=== PATIENT | male | born 1965 | race Caucasian/White ===

== ENCOUNTER 2024-01-15 19:36 | Inpatient (IN) | payer OTHER ==
--- NOTE | 2024-01-15 21:30 | XR ---
EXAMINATION TYPE: XR chest 1V portable DATE OF EXAM: 01/15/2024 9:24 PM CLINICAL INDICATION:Male, 58 years old with history of altered mental status; COMPARISON: None TECHNIQUE: XR chest 1V portable Frontal view of the chest. FINDINGS: Lungs/Pleura: There is no evidence of pleural effusion, focal consolidation, or pneumothorax. Pulmonary vascularity: Unremarkable. Heart/mediastinum: Cardiomediastinal silhouette is unremarkable. Musculoskeletal: No acute osseous pathology. IMPRESSION: Rotated exam, No acute cardiopulmonary disease/process.
[2024-01-15 22:10] LABS: Basophils # (A) 0.1 k/uL (0-0.2); Basophils % (A) 1 %; Eosinophils % (A) 0 %; HGB 15.1 gm/dL (13.0-17.5); Lymphocytes # (A) 1.2 k/uL (1.0-4.8); Lymphocytes % (A) 15 %; MCH 32.7 pg (25.0-35.0); MCHC 35.2 g/dL (31.0-37.0); Mean Platelet Volume 6.9; Monocytes # (A) 0.6 k/uL (0-1.0); Monocytes % (A) 8 %; Neutrophils # (A) 5.9 k/uL (1.3-7.7); Neutrophils % (A) 75 %; Platelet Count 293 k/uL (150-450); RBC 4.63 m/uL (4.30-5.90); RDW 13.6 % (11.5-15.5); WBC 7.9 k/uL (3.8-10.6)
[2024-01-15 22:29] LABS: ALT 46 U/L (4-49); AST 72 U/L (17-59); African American GFR (CKD) >90 (>60 ml/min/1.73 sqM); Albumin 4.3 g/dL (3.5-5.0); Alkaline Phosphatase 115 U/L (38-126); Anion Gap 20 mmol/L; Blood Urea Nitrogen 21 mg/dL (9-20); Calcium 8.6 mg/dL (8.4-10.2); Carbon Dioxide 24 mmol/L (22-30); Chloride 90 mmol/L (98-107); Glucose 71 mg/dL (74-99); Non-African American GFR(CKD) 85 (>60 ml/min/1.73 sqM); Potassium 3.2 mmol/L (3.5-5.1); Sodium 134 mmol/L (137-145); Total Bilirubin 0.9 mg/dL (0.2-1.3); Total Protein 6.8 g/dL (6.3-8.2)
[2024-01-15 22:39] LABS: INR 0.9 (<1.2); Partial Thromboplastin Time 23.1 sec (22.0-30.0); Prothrombin Time 9.7 sec (10.0-12.5)
--- NOTE | 2024-01-15 23:16 | ED ---
General Adult HPI - General Chief complaint: Shortness of Breath Stated complaint: ETOH,BRAYDEN Time Seen by Provider: 01/15/24 21:10 Source: EMS Mode of arrival: EMS Limitations: altered mental status - History of Present Illness Initial comments: Patient is 58-year-old man who presents with complaints of public intoxication. When I interviewed the patient, he states that he had been sober for a period of time and then began drinking about a month ago. He states that he does drink over 1/5 of alcohol on many days. He drinks daily. The patient today states he feels very anxious like something is going to happen to him. Patient denies recent fall or injury. No hematemesis. Severity scale (1-10): 0 Consistency: constant Improves with: none Worsens with: none Associated Symptoms: nausea/vomiting, weakness Treatments Prior to Arrival: none - Related Data Home Medications Medication Instructions Recorded Confirmed No Known Home Medications 01/16/24 01/16/24 Allergies Allergy/AdvReac Type Severity Reaction Status Date / Time No Known Allergies Allergy Verified 01/16/24 07:07 Review of Systems ROS Statement: Those systems with pertinent positive or pertinent negative responses have been documented in the HPI. ROS Other: All systems not noted in ROS Statement are negative. Constitutional: Reports: weakness. Denies: fever Eyes: Denies: vision change Respiratory: Denies: cough, dyspnea Cardiovascular: Denies: chest pain, palpitations, edema Gastrointestinal: Reports: nausea, vomiting. Denies: abdominal pain, diarrhea, hematemesis, melena, hematochezia Genitourinary: Denies: dysuria, hematuria Musculoskeletal: Denies: back pain Skin: Denies: rash Neurological: Denies: headache, weakness, numbness Psychiatric: Reports: anxiety, depression. Denies: suicidal thoughts Past Medical History Past Medical History: Hyperlipidemia, Hypertension History of Any Multi-Drug Resistant Organisms: None Reported Past Surgical History: No Surgical Hx Reported Past Psychological History: Anxiety, Bipolar, Depression Smoking Status: Current every day smoker Past Alcohol Use History: Abuse Past Drug Use History: Marijuana General Exam General appearance: alert, in no apparent distress, appears intoxicated Head exam: Present: atraumatic, normocephalic Eye exam: Present: normal appearance. Absent: scleral icterus, conjunctival injection ENT exam: Present: normal oropharynx Neck exam: Present: normal inspection Respiratory exam: Present: normal lung sounds bilaterally. Absent: respiratory distress, wheezes, rales, rhonchi, stridor Cardiovascular Exam: Present: regular rate, normal rhythm, normal heart sounds. Absent: systolic murmur, diastolic murmur, rubs, gallop GI/Abdominal exam: Present: soft. Absent: distended, tenderness, guarding, rebound, rigid, mass Extremities exam: Present: normal inspection, normal capillary refill. Absent: pedal edema, calf tenderness Back exam: Present: normal inspection. Absent: CVA tenderness (R), CVA tenderness (L) Neurological exam: Present: alert, CN II-XII intact. Absent: oriented X3, motor sensory deficit Psychiatric exam: Present: depressed. Absent: homicidal ideation, suicidal ideation Skin exam: Present: warm, dry, intact, normal color. Absent: rash Course Vital Signs 01/15/24 01/15/24 01/16/24 19:47 22:48 00:22 Temperature 98.6 F Pulse Rate 100 92 95 Pulse Rate [ Left] Respiratory 18 18 18 Rate Blood Pressure 101/66 Blood Pressure [Left Arm] O2 Sat by Pulse 91 L 95 Oximetry 01/16/24 01/16/24 01/16/24 06:18 08:00 08:51 Temperature 98.3 F 98.6 F Pulse Rate 96 71 77 Pulse Rate [ Left] Respiratory 18 18 18 Rate Blood Pressure 99/74 124/53 124/43 Blood Pressure [Left Arm] O2 Sat by Pulse 94 L 96 94 L Oximetry 01/16/24 01/16/24 01/16/24 09:37 14:55 15:01 Temperature Pulse Rate 71 72 84 Pulse Rate [ Left] Respiratory 16 18 Rate Blood Pressure 107/81 102/91 Blood Pressure [Left Arm] O2 Sat by Pulse 96 96 Oximetry 01/16/24 01/16/24 15:09 15:33 Temperature 98.0 F Pulse Rate 78 Pulse Rate [ 83 Left] Respiratory 18 Rate Blood Pressure Blood Pressure 157/80 [Left Arm] O2 Sat by Pulse 95 Oximetry Medical Decision Making - Medical Decision Making Patient had chest x-ray that I interpreted as negative for acute infiltrate, pneumothorax, congestive heart failure. Was pt. sent in by a medical professional or institution (, PA, COFFEE URN ATTENDANT, urgent care, hospital, or skilled nursing...) When possible be specific @ -[No] Did you speak to anyone other than the patient for history (EMS, parent, family, police, friend...)? What history was obtained from this source @ -[No] Did you review nursing and triage notes (agree or disagree)? Why? @ -[I reviewed and agree with nursing and triage notes] Were old charts reviewed (outside hosp., previous admission, EMS record, old EKG, old radiological studies, urgent care reports/EKG's, skilled nursing records)? Report findings @ -[No old charts were reviewed] Differential Diagnosis (chest pain, altered mental status, abdominal pain women, abdominal pain men, vaginal bleeding, weakness, fever, dyspnea, syncope, headache, dizziness, GI bleed, back pain, seizure, CVA, palpatations, mental health, musculoskeletal)? @ -[Differential Mental Health Depression, anxiety, bipolar, psychosis, schizophrenia, borderline personality, situational depression, adjustment disorder, behavioral disorder, brain tumor, malingering, substance abuse, encephalopathy, medication reaction, dementia, hypothyroidism, degenerative neurologic disorder, lupus.... This is not meant to be all-inclusive list EKG interpreted by me (3pts min.). @ -[As above] X-rays interpreted by me (1pt min.). @ -[I interpreted as above CT interpreted by me (1pt min.). @ -[None done] U/S interpreted by me (1pt. min.). @ -[None done] What testing was considered but not performed or refused? (CT, X-rays, U/S, labs)? Why? @ -[None] What meds were considered but not given or refused? Why? @ -[None] Did you discuss the management of the patient with other professionals (professionals i.e. , PA, COFFEE URN ATTENDANT, lab, RT, psych nurse, case management social worker, brand analyst, teacher, police or patrol park officer, community case manager)? Give summary @ -[Case discussed with admitting physician and treatment recommendations are incorporated Was smoking cessation discussed for >3mins.? @ -[No] Was critical care preformed (if so, how long)? @ -[No] Were there social determinants of health that impacted care today? How? (Homelessness, low income, unemployed, alcoholism, drug addiction, transportation, low edu. Level, literacy, decrease access to med. care, custodial, rehab)? @ -[Alcoholism Was there de-escalation of care discussed even if they declined (Discuss DNR or withdrawal of care, Hospice)? DNR status @ -[No] What co-morbidities impacted this encounter? (DM, HTN, Smoking, COPD, CAD, Cancer, CVA, ARF, Chemo, Hep., AIDS, mental health diagnosis, sleep apnea, morbid obesity)? @ -[History of alcoholism Was patient admitted / discharged? Hospital course, mention meds given and route, prescriptions, significant lab abnormalities, going to OR and other pertinent info. @ -[Patient is a 58-year-old man presenting with acute alcohol intoxication and starting to develop DTs. Patient will be admitted for [facility] protocol Undiagnosed new problem with uncertain prognosis? @ -[No] Drug Therapy requiring intensive monitoring for toxicity (Heparin, Nitro, Insulin, Cardizem)? @ -[No] Were any procedures done? @ -[No] Diagnosis/symptom? @ -[Acute alcohol intoxication Impending delirium tremens Acute, or Chronic, or Acute on Chronic? @ -[Acute Uncomplicated (without systemic symptoms) or Complicated (systemic symptoms)? @ -[Uncomplicated Side effects of treatment? @ -[No] Exacerbation, Progression, or Severe Exacerbation? @ -[No] Poses a threat to life or bodily function? How? (Chest pain, [place], [place], pneumonia, PE, COPD, DKA, ARF, appy, cholecystitis, CVA, Diverticulitis, Homicidal, Suicidal, threat to staff... and all critical care pts) @ -[Yes, there is significant morbidity mortality associated with DTs - Lab Data Result diagrams: 01/18/24 07:17 01/20/24 06:59 Lab Results 01/15/24 01/15/24 01/15/24 Range/Units 21:52 21:52 21:52 WBC 7.9 (3.8-10.6) k/uL RBC 4.63 (4.30-5.90) m/uL Hgb 15.1 (13.0-17.5) gm/dL Hct 43.0 (39.0-53.0) % MCV 93.0 (80.0-100.0) fL MCH 32.7 (25.0-35.0) pg MCHC 35.2 (31.0-37.0) g/dL RDW 13.6 (11.5-15.5) % Plt Count 293 (150-450) k/uL MPV 6.9 Neutrophils % 75 % Lymphocytes % 15 % Monocytes % 8 % Eosinophils % 0 % Basophils % 1 % Neutrophils # 5.9 (1.3-7.7) k/uL Lymphocytes # 1.2 (1.0-4.8) k/uL Monocytes # 0.6 (0-1.0) k/uL Eosinophils # 0.0 (0-0.7) k/uL Basophils # 0.1 (0-0.2) k/uL PT 9.7 L (10.0-12.5) sec INR 0.9 (<1.2) APTT 23.1 (22.0-30.0) sec Sodium 134 L (137-145) mmol/L Potassium 3.2 L (3.5-5.1) mmol/L Chloride 90 L (98-107) mmol/L Carbon Dioxide 24 (22-30) mmol/L Anion Gap 20 mmol/L BUN 21 H (9-20) mg/dL Creatinine 0.97 (0.66-1.25) mg/dL Est GFR (CKD-EPI)AfAm >90 (>60 ml/min/1.73 sqM) Est GFR (CKD-EPI)NonAf 85 (>60 ml/min/1.73 sqM) Glucose 71 L (74-99) mg/dL Lactic Ac Sepsis Rflx Plasma Lactic Acid Sacha (0.7-2.0) mmol/L Calcium 8.6 (8.4-10.2) mg/dL Total Bilirubin 0.9 (0.2-1.3) mg/dL AST 72 H (17-59) U/L ALT 46 (4-49) U/L Alkaline Phosphatase 115 (38-126) U/L Troponin I (0.000-0.034) ng/mL Total Protein 6.8 (6.3-8.2) g/dL Albumin 4.3 (3.5-5.0) g/dL Serum Alcohol mg/dL 01/15/24 01/15/24 01/15/24 Range/Units 21:52 21:52 22:53 WBC (3.8-10.6) k/uL RBC (4.30-5.90) m/uL Hgb (13.0-17.5) gm/dL Hct (39.0-53.0) % MCV (80.0-100.0) fL MCH (25.0-35.0) pg MCHC (31.0-37.0) g/dL RDW (11.5-15.5) % Plt Count (150-450) k/uL MPV Neutrophils % % Lymphocytes % % Monocytes % % Eosinophils % % Basophils % % Neutrophils # (1.3-7.7) k/uL Lymphocytes # (1.0-4.8) k/uL Monocytes # (0-1.0) k/uL Eosinophils # (0-0.7) k/uL Basophils # (0-0.2) k/uL PT (10.0-12.5) sec INR (<1.2) APTT (22.0-30.0) sec Sodium (137-145) mmol/L Potassium (3.5-5.1) mmol/L Chloride (98-107) mmol/L Carbon Dioxide (22-30) mmol/L Anion Gap mmol/L BUN (9-20) mg/dL Creatinine (0.66-1.25) mg/dL Est GFR (CKD-EPI)AfAm (>60 ml/min/1.73 sqM) Est GFR (CKD-EPI)NonAf (>60 ml/min/1.73 sqM) Glucose (74-99) mg/dL Lactic Ac Sepsis Rflx Y Plasma Lactic Acid Sacha 2.6 H* (0.7-2.0) mmol/L Calcium (8.4-10.2) mg/dL Total Bilirubin (0.2-1.3) mg/dL AST (17-59) U/L ALT (4-49) U/L Alkaline Phosphatase (38-126) U/L Troponin I 0.025 (0.000-0.034) ng/mL Total Protein (6.3-8.2) g/dL Albumin (3.5-5.0) g/dL Serum Alcohol mg/dL 01/15/24 01/16/24 Range/Units 23:29 01:09 WBC (3.8-10.6) k/uL RBC (4.30-5.90) m/uL Hgb (13.0-17.5) gm/dL Hct (39.0-53.0) % MCV (80.0-100.0) fL MCH (25.0-35.0) pg MCHC (31.0-37.0) g/dL RDW (11.5-15.5) % Plt Count (150-450) k/uL MPV Neutrophils % % Lymphocytes % % Monocytes % % Eosinophils % % Basophils % % Neutrophils # (1.3-7.7) k/uL Lymphocytes # (1.0-4.8) k/uL Monocytes # (0-1.0) k/uL Eosinophils # (0-0.7) k/uL Basophils # (0-0.2) k/uL PT (10.0-12.5) sec INR (<1.2) APTT (22.0-30.0) sec Sodium (137-145) mmol/L Potassium (3.5-5.1) mmol/L Chloride (98-107) mmol/L Carbon Dioxide (22-30) mmol/L Anion Gap mmol/L BUN (9-20) mg/dL Creatinine (0.66-1.25) mg/dL Est GFR (CKD-EPI)AfAm (>60 ml/min/1.73 sqM) Est GFR (CKD-EPI)NonAf (>60 ml/min/1.73 sqM) Glucose (74-99) mg/dL Lactic Ac Sepsis Rflx Plasma Lactic Acid Sacha 1.8 (0.7-2.0) mmol/L Calcium (8.4-10.2) mg/dL Total Bilirubin (0.2-1.3) mg/dL AST (17-59) U/L ALT (4-49) U/L Alkaline Phosphatase (38-126) U/L Troponin I (0.000-0.034) ng/mL Total Protein (6.3-8.2) g/dL Albumin (3.5-5.0) g/dL Serum Alcohol 338 H* mg/dL Disposition Clinical Impression: Alcohol intoxication Disposition: ADMITTED IP TO THIS HOSP Condition: Fair
[2024-01-16] MEDS ORDERED: NALOXONE 0.4 MG/ML 1 ML VIAL IV PRN (01:47)
[2024-01-16] MEDS: SODIUM CHLORIDE 0.9% 1,000 ML IV SCH (02:11)
[2024-01-16] MEDS: FAMOTIDINE 20 MG TAB PO SCH (09:06)
[2024-01-16] MEDS: LORazepam 2 MG/ML INJ IV PRN ×3 (09:06→17:42)
[2024-01-16] MEDS ORDERED: IPRATROPIUM-ALBUTEROL 3 ML NEB INHALATION PRN (12:16)
--- NOTE | 2024-01-16 13:41 | HP ---
HISTORY AND PHYSICAL CHIEF COMPLAINT: Shortness of breath and ETOH history. HISTORY OF PRESENT ILLNESS: This is a 58-year-old gentleman with a past medical history of significant EtOH abuse, was sober for time. The patient started about a month ago. The patient is complaining of some shortness of breath and cough. The patient came to [facility] for further evaluation and treatment. The initial chest x-ray which I reviewed was rather rotated. Otherwise, no skin abnormalities are noted. The alcohol was 338. PAST MEDICAL HISTORY: Reviewed include , hyperlipidemia, history of bipolar, rest of the chart is also reviewed. HOME MEDICATIONS: None. ALLERGIES: None. FAMILY HISTORY: No history of heart disease or strokes in the family. SOCIAL HISTORY: History of alcohol abuse. REVIEW OF SYSTEMS: A 14-point review of systems negative as mentioned earlier. PHYSICAL EXAMINATION: VITAL SIGNS: Pulse is 71, blood pressure 107/82, and respirations 16. HEENT: Conjunctivae normal. NECK: No jugular venous distention. CARDIOVASCULAR: S1, S2. RESPIRATIONS: Diminished at the bases, few scattered rhonchi. ABDOMEN: Soft. NERVOUS SYSTEM: Nonfocal. LABORATORY DATA: Reviewed. ASSESSMENT: 1. Acute alcohol intoxication. 2. Possible COPD acute exacerbation. 3. Hyponatremia. 4. Hypokalemia. 5. Hypertension. 6. Hyperlipidemia. 7. Anxiety, bipolar, depression. RECOMMENDATIONS AND DISCUSSION: This 58-year-old gentleman presented with multiple complex medical issues, we will monitor the patient closely. I would recommend intensive bronchodilator treatment. Otherwise, [facility] protocol for ETOH and DT precautions. We will follow the patient closely. DVT prophylaxis. Supplement vitamins. Prognosis guarded. Recommend close followup with primary physician as well as an ETOH rehab after discharge. Further recommendations to follow. MMODL / IJN: [id number] / SOREN
[2024-01-16] MEDS: IPRATROPIUM-ALBUTEROL 3 ML NEB INHALATION SCH (15:00)
[2024-01-16] MEDS: SYMBICORT 160-4.5 MCG INHALER INHALATION SCH (15:01)
[2024-01-16] MEDS: NICOTINE 14MG/24HR PATCH TRANSDERM SCH (15:38)
[2024-01-16] MEDS: POTASSIUM CHLORIDE ER 20 MEQ TAB.ER PO STA (17:24)
[2024-01-16] MEDS: HEPARIN SODIUM,PORCINE 5,000 UNIT/ML 1 ML VIAL SQ SCH (19:57)
[2024-01-17] MEDS: PANTOPRAZOLE 40 MG TABLET PO SCH (06:33)
[2024-01-17] MEDS: THIAMINE 100 MG TAB PO SCH (08:12)
[2024-01-17 08:25] LABS: African American GFR (CKD) >90 (>60 ml/min/1.73 sqM); Anion Gap 3 mmol/L; Blood Urea Nitrogen 16 mg/dL (9-20); Calcium 8.7 mg/dL (8.4-10.2); Carbon Dioxide 32 mmol/L (22-30); Chloride 93 mmol/L (98-107); Glucose 111 mg/dL (74-99); Non-African American GFR(CKD) >90 (>60 ml/min/1.73 sqM); Potassium 3.1 mmol/L (3.5-5.1); Sodium 128 mmol/L (137-145)
[2024-01-17 08:53] LABS: Basophils % (A) 1 %; Eosinophils # (A) 0.1 k/uL (0-0.7); Eosinophils % (A) 2 %; HCT 39.1 % (39.0-53.0); HGB 13.4 gm/dL (13.0-17.5); Lymphocytes # (A) 1.1 k/uL (1.0-4.8); Lymphocytes % (A) 35 %; MCH 32.5 pg (25.0-35.0); MCHC 34.3 g/dL (31.0-37.0); MCV 94.6 fL (80.0-100.0); Mean Platelet Volume 7.7; Monocytes # (A) 0.2 k/uL (0-1.0); Monocytes % (A) 6 %; Neutrophils # (A) 1.7 k/uL (1.3-7.7); Neutrophils % (A) 55 %; Platelet Count 218 k/uL (150-450); RBC 4.13 m/uL (4.30-5.90); RDW 13.6 % (11.5-15.5)
[2024-01-17] MEDS: MULTIVITAMINS, THERA 1 EACH TAB PO SCH (12:06)
[2024-01-17] MEDS: FOLIC ACID 1 MG TAB PO SCH (12:06)
[2024-01-17] MEDS ORDERED: Magnesium Replacement Protocol 1 EACH MISC MISCELLANE PRN (13:58)
[2024-01-17] MEDS ORDERED: Potassium Replacement Protocol 1 EACH MISC MISCELLANE PRN (13:58)
--- NOTE | 2024-01-17 14:38 | PN ---
PROGRESS NOTE DATE OF SERVICE: 01/17/2024 SUBJECTIVE: This is a 58-year-old gentleman who was admitted with acute alcohol intoxication and possibly COPD exacerbation, complaining of generalized weakness. No chest pain, no palpitation. OBJECTIVE: VITAL SIGNS: Pulse is 54, blood pressure 140/60, and respirations 17. CHEST: Few scattered rhonchi and crackles. ABDOMEN: Soft. NERVOUS SYSTEM: Diffusely Weak. LABORATORY DATA: Sodium 128, potassium 3.1. ASSESSMENT: 1. Acute alcohol intoxication. 2. Chronic obstructive pulmonary disease acute exacerbation. 3. Hyponatremia. 4. Hypokalemia. 5. Hypertension. 6. Hyperlipidemia. 7. Multiple complex medical issues. RECOMMENDATIONS: Recommended to continue current management, continue symptomatic treatment, obtained potassium. Monitor sodium closely, PT OT evaluation. Prognosis guarded. Recommend repeat labs. Further recommendations to follow. ADRIAN / ERIK: [id number] /
[2024-01-17] MEDS: HYDROcodone/APAP 5-325MG 1 EACH TAB PO PRN (14:51)
[2024-01-17] MEDS: POTASSIUM CHLORIDE ER 20 MEQ TAB.ER PO SCH (14:52)
[2024-01-18 07:47] LABS: Basophils % (A) 1 %; Eosinophils # (A) 0.1 k/uL (0-0.7); Eosinophils % (A) 2 %; HCT 42.1 % (39.0-53.0); Lymphocytes # (A) 0.7 k/uL (1.0-4.8); Lymphocytes % (A) 18 %; MCHC 33.3 g/dL (31.0-37.0); Mean Platelet Volume 7.2; Monocytes # (A) 0.1 k/uL (0-1.0); Monocytes % (A) 3 %; Neutrophils # (A) 3.1 k/uL (1.3-7.7); Neutrophils % (A) 76 %; Platelet Count 228 k/uL (150-450); RBC 4.39 m/uL (4.30-5.90); RDW 13.6 % (11.5-15.5)
[2024-01-18 07:57] LABS: African American GFR (CKD) >90 (>60 ml/min/1.73 sqM); Anion Gap 3 mmol/L; Blood Urea Nitrogen 10 mg/dL (9-20); Calcium 9.5 mg/dL (8.4-10.2); Carbon Dioxide 36 mmol/L (22-30); Chloride 94 mmol/L (98-107); Glucose 110 mg/dL (74-99); Magnesium 1.9 mg/dL (1.6-2.3); Non-African American GFR(CKD) >90 (>60 ml/min/1.73 sqM); Potassium 3.5 mmol/L (3.5-5.1); Sodium 133 mmol/L (137-145)
--- NOTE | 2024-01-18 08:21 | P.PN ---
Subjective this is a pleasant 58 years old male who presents with signs symptoms of alcohol intoxication and he had high level of alcohol 338 emergency room Currently he was admitted to general medical floor treated for alcohol withdrawal. 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 Currently he agrees just in the hospital. no chest pain or dyspnea. No specific GI or urinary complaints. No headache dizziness weakness or numbness vitals looks stable CBC is unremarkable Sodium is improving 128 up to 133 EKG shows sinus rhythm at 84 Chest x-ray no acute process Objective - Vital Signs Vital signs: Vital Signs Temp 97.9 F 01/18/24 07:52 Pulse 79 01/18/24 07:52 Resp 17 01/18/24 07:52 BP 122/76 01/18/24 07:52 Pulse Ox 98 01/18/24 07:52 FiO2 Intake & Output 01/17/24 01/18/24 01/18/24 18:59 06:59 18:59 Other: Voiding Method Toilet Toilet # Voids 2 3 # Bowel Movements 7 - Exam - GENERAL: The patient is alert and oriented x3, not in any acute distress. Well developed, well nourished. tremor of the head and neck and arms HEENT: Pupils are round and equally reacting to light. EOMI. No scleral icterus. No conjunctival pallor. Normocephalic, atraumatic. No pharyngeal erythema. No thyromegaly. CARDIOVASCULAR: S1 and S2 present. No murmurs, rubs, or gallops. PULMONARY: Chest is clear to auscultation, no wheezing , no crackles. ABDOMEN: Soft, nontender, nondistended, normoactive bowel sounds. No palpable organomegaly. MUSCULOSKELETAL: No joint swelling or deformity. EXTREMITIES: No cyanosis, clubbing, or pedal edema. NEUROLOGICAL: Gross neurological examination did not reveal any focal deficits. SKIN: No rashes. no petechiae. - Labs CBC & Chem 7: 01/18/24 07:17 01/18/24 07:17 Labs: Abnormal Lab Results - Last 24 Hours (Table) 01/17/24 01/17/24 01/18/24 Range/Units 07:38 07:38 07:17 WBC 3.0 L (3.8-10.6) k/uL RBC 4.13 L (4.30-5.90) m/uL Lymphocytes # 0.7 L (1.0-4.8) k/uL Sodium 128 L (137-145) mmol/L Potassium 3.1 L (3.5-5.1) mmol/L Chloride 93 L (98-107) mmol/L Carbon Dioxide 32 H (22-30) mmol/L Creatinine 0.61 L (0.66-1.25) mg/dL Glucose 111 H (74-99) mg/dL 01/18/24 Range/Units 07:17 WBC (3.8-10.6) k/uL RBC (4.30-5.90) m/uL Lymphocytes # (1.0-4.8) k/uL Sodium 133 L (137-145) mmol/L Potassium (3.5-5.1) mmol/L Chloride 94 L (98-107) mmol/L Carbon Dioxide 36 H (22-30) mmol/L Creatinine (0.66-1.25) mg/dL Glucose 110 H (74-99) mg/dL Assessment and Plan Assessment: alcohol use disorder and alcohol withdrawal depression without suicidal or homicidal ideation Insomnia Hyponatremia hyperlipidemia Plan: continue with [facility] protocol on thiamine at trazodone start Zoloft Monitor sodium level GI prophylaxis: Pepcid DVT prophylaxis: Heparin Prognosis is guarded
[2024-01-18] MEDS: SERTRALINE 25 MG TAB PO SCH (10:43)
[2024-01-18 11:39] VITALS: BMI 17.6
[2024-01-18] MEDS: SODIUM CHLORIDE 0.9% 1,000 ML IV SCH (14:58)
[2024-01-18] MEDS: traZODone HCL 100 MG TAB PO SCH (20:26)
[2024-01-19] MEDS: CHOLESTYRAMINE (WITH SUGAR) 4 GM PACKET PO SCH (11:15)
[2024-01-19 12:06] LABS: ALT 35 U/L (4-49); AST 45 U/L (17-59); African American GFR (CKD) >90 (>60 ml/min/1.73 sqM); Albumin 3.1 g/dL (3.5-5.0); Alkaline Phosphatase 94 U/L (38-126); Anion Gap 2 mmol/L; Blood Urea Nitrogen 8 mg/dL (9-20); Calcium 8.7 mg/dL (8.4-10.2); Carbon Dioxide 29 mmol/L (22-30); Chloride 103 mmol/L (98-107); Glucose 90 mg/dL (74-99); Magnesium 1.7 mg/dL (1.6-2.3); Non-African American GFR(CKD) >90 (>60 ml/min/1.73 sqM); Potassium 3.8 mmol/L (3.5-5.1); Sodium 134 mmol/L (137-145); Total Bilirubin 0.6 mg/dL (0.2-1.3); Total Protein 5.4 g/dL (6.3-8.2)
--- NOTE | 2024-01-19 14:56 | P.PN ---
Subjective Progress Note Date: 01/19/24 this is a pleasant 58 years old male who presents with signs symptoms of alcohol intoxication and he had high level of alcohol 338 emergency room Currently he was admitted to general medical floor treated for alcohol withdrawal. 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 Currently he agrees just in the hospital. no chest pain or dyspnea. No specific GI or urinary complaints. No headache dizziness weakness or numbness vitals looks stable CBC is unremarkable Sodium is improving 128 up to 133 EKG shows sinus rhythm at 84 Chest x-ray no acute process 01/19/2024 Patient is evaluated in follow-up on the medical floor. Patient continues to have symptoms of alcohol withdrawal he is having tremors at baseline and overall states that "he feels like shit". He is continued on Ativan CIWA protocol with last dose being given in at 3 AM this morning. Patient does complain of multiple episodes of loose stools and nausea. C. difficile was found to be negative he will be started on question for supportive care. He is currently pending rehab and social work is following with multiple social issues including no insurance. Review of Systems Constitutional: Denied any fatigue denied any fever. Cardio vascular: denied any chest pain, palpitations Gastrointestinal: denied any nausea, vomiting, diarrhea Pulmonary: Denied any shortness of breath cough Neurologic: Reports weakness, tremors All inpatient medications were reviewed and appropriate changes in these medications as dictated in the interval history and assessment and plan. PHYSICAL EXAMINATION: GENERAL: The patient is alert and oriented x3, not in any acute distress. Well developed, well nourished. HEENT: Pupils are round and equally reacting to light. EOMI. No scleral icterus. No conjunctival pallor. Normocephalic, atraumatic. No pharyngeal erythema. No thyromegaly. CARDIOVASCULAR: S1 and S2 present. No murmurs, rubs, or gallops. PULMONARY: Chest is clear to auscultation, no wheezing or crackles. ABDOMEN: Soft, nontender, nondistended, normoactive bowel sounds. No palpable organomegaly. MUSCULOSKELETAL: No joint swelling or deformity. EXTREMITIES: No cyanosis, clubbing, or pedal edema. NEUROLOGICAL: Gross neurological examination did not reveal any focal deficits. Diffuse weakness and tremors with arms extended. SKIN: No rashes. Assessment and Plan Assessment Alcohol use disorder and alcohol withdrawal Depression without suicidal or homicidal ideation Insomnia Hyponatremia hypovolemic due to diarrhea Diarrhea from alcohol withdrawal hyperlipidemia GI prophylaxis Protonix DVT prophlyaxis Full Code Plan Continue on ativan CIWA protocol Continue with normal saline running at 75 mls/hr Add questran scheduled as well as imodium for the diarrhea Repeat BMP in the AM monitor electrolytes and renal function Social work following for Medicaid josse and rehab placement. The impression and plan of care has been dictated by Angie Diaz Nurse Practitioner as directed. Dr. Tara MD I have performed a history and physical examination and medical decision making of this patient, discussed the same with the dictator, and agree with the dictators assessment and plan as written, documented as a scribe. Based on total visit time, I have performed more than 50% of this visit. Objective - Vital Signs Vital signs: Vital Signs Temp 98 F 01/19/24 08:00 Pulse 74 01/19/24 08:00 Resp 20 01/19/24 08:00 BP 142/73 01/19/24 08:00 Pulse Ox 100 01/19/24 08:00 FiO2 Intake & Output 01/18/24 01/19/24 01/19/24 18:59 06:59 18:59 Weight 58.967 kg Other: Voiding Method Toilet Toilet # Bowel Movements 10 - Labs CBC & Chem 7: 01/18/24 07:17 01/19/24 11:25 Labs: Abnormal Lab Results - Last 24 Hours (Table) 01/19/24 Range/Units 11:25 Sodium 134 L (137-145) mmol/L BUN 8 L (9-20) mg/dL Creatinine 0.64 L (0.66-1.25) mg/dL Total Protein 5.4 L (6.3-8.2) g/dL Albumin 3.1 L (3.5-5.0) g/dL Assessment and Plan Time with Patient: Less than 30
[2024-01-20 08:36] LABS: African American GFR (CKD) >90 (>60 ml/min/1.73 sqM); Anion Gap 0 mmol/L; Blood Urea Nitrogen 13 mg/dL (9-20); Calcium 8.4 mg/dL (8.4-10.2); Carbon Dioxide 30 mmol/L (22-30); Chloride 105 mmol/L (98-107); Glucose 90 mg/dL (74-99); Non-African American GFR(CKD) >90 (>60 ml/min/1.73 sqM); Potassium 3.7 mmol/L (3.5-5.1); Sodium 135 mmol/L (137-145)
--- NOTE | 2024-01-20 14:52 | P.PN ---
Subjective Progress Note Date: 01/20/24 this is a pleasant 58 years old male who presents with signs symptoms of alcohol intoxication and he had high level of alcohol 338 emergency room Currently he was admitted to general medical floor treated for alcohol withdrawal. 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 Currently he agrees just in the hospital. no chest pain or dyspnea. No specific GI or urinary complaints. No headache dizziness weakness or numbness vitals looks stable CBC is unremarkable Sodium is improving 128 up to 133 EKG shows sinus rhythm at 84 Chest x-ray no acute process 01/19/2024 Patient is evaluated in follow-up on the medical floor. Patient continues to have symptoms of alcohol withdrawal he is having tremors at baseline and overall states that "he feels like shit". He is continued on Ativan CIWA protocol with last dose being given in at 3 AM this morning. Patient does complain of multiple episodes of loose stools and nausea. C. difficile was found to be negative he will be started on question for supportive care. He is currently pending rehab and social work is following with multiple social issues including no insurance. 01/20/2024 Patient is eval today in follow-up on the medical floor. Patient continues to have bouts of diarrhea however overall improving and discontinuing question and Imodium. Patient is not having any tremors today he is more awake alert and oriented. He is still requiring a walker and assistance with ambulation and was recommended to discharge to subacute rehab. Potentially could be reevaluated by physical therapy when they are available on Monday and discharged home instead as patient states that he has things that he needs to take care of. Blood work today reveals a sodium level of 135, potassium 3.7, BUN of 13, creatinine of 0.71. Hemodynamically he is stable. Review of Systems Constitutional: Denied any fatigue denied any fever. Cardio vascular: denied any chest pain, palpitations Gastrointestinal: denied any nausea, vomiting, diarrhea Pulmonary: Denied any shortness of breath cough Neurologic: Reports weakness, tremors All inpatient medications were reviewed and appropriate changes in these medications as dictated in the interval history and assessment and plan. PHYSICAL EXAMINATION: GENERAL: The patient is alert and oriented x3, not in any acute distress. Well developed, well nourished. HEENT: Pupils are round and equally reacting to light. EOMI. No scleral icterus. No conjunctival pallor. Normocephalic, atraumatic. No pharyngeal erythema. No thyromegaly. CARDIOVASCULAR: S1 and S2 present. No murmurs, rubs, or gallops. PULMONARY: Chest is clear to auscultation, no wheezing or crackles. ABDOMEN: Soft, nontender, nondistended, normoactive bowel sounds. No palpable organomegaly. MUSCULOSKELETAL: No joint swelling or deformity. EXTREMITIES: No cyanosis, clubbing, or pedal edema. NEUROLOGICAL: Gross neurological examination did not reveal any focal deficits. Diffuse weakness and tremors with arms extended. SKIN: No rashes. Assessment and Plan Assessment Alcohol use disorder and alcohol withdrawal Depression without suicidal or homicidal ideation Insomnia Hyponatremia hypovolemic due to diarrhea Diarrhea from alcohol withdrawal hyperlipidemia GI prophylaxis Protonix DVT prophlyaxis Full Code Plan Continue on ativan CIWA protocol Continue with normal saline running at 75 mls/hr Add questran scheduled as well as imodium for the diarrhea Repeat BMP in the AM monitor electrolytes and renal function Social work following for Medicaid josse and rehab placement. To reevaluate patient on Monday with physical therapy and possible discharge home if he is doing well enough. The impression and plan of care has been dictated by Angie Diaz, Nurse Practitioner as directed. Dr. Tara MD I have performed a history and physical examination and medical decision making of this patient, discussed the same with the dictator, and agree with the dictators assessment and plan as written, documented as a scribe. Based on total visit time, I have performed more than 50% of this visit. Objective - Vital Signs Vital signs: Vital Signs Temp 98.2 F 01/20/24 07:38 Pulse 60 01/20/24 08:12 Resp 16 01/20/24 07:38 BP 114/65 01/20/24 07:38 Pulse Ox 99 01/20/24 07:38 FiO2 Intake & Output 01/19/24 01/20/24 01/20/24 18:59 06:59 18:59 Intake Total 600 Balance 600 Intake: Intake, IV Titration 600 Amount Sodium Chloride 0.9% 1, 600 000 ml @ 75 mls/hr IV . [id number] [facility] Rx#:[id number] Other: Voiding Method Toilet # Voids 1 # Bowel Movements 1 - Labs CBC & Chem 7: 01/18/24 07:17 01/20/24 06:59 Labs: Abnormal Lab Results - Last 24 Hours (Table) 01/19/24 01/20/24 Range/Units 11:25 06:59 Sodium 134 L 135 L (137-145) mmol/L BUN 8 L (9-20) mg/dL Creatinine 0.64 L (0.66-1.25) mg/dL Total Protein 5.4 L (6.3-8.2) g/dL Albumin 3.1 L (3.5-5.0) g/dL Assessment and Plan Time with Patient: Less than 30
[2024-01-21] MEDS: LOPERAMIDE 2 MG CAP PO PRN (12:13)
--- NOTE | 2024-01-21 16:16 | P.PN ---
Subjective Progress Note Date: 01/21/24 this is a pleasant 58 years old male who presents with signs symptoms of alcohol intoxication and he had high level of alcohol 338 emergency room Currently he was admitted to general medical floor treated for alcohol withdrawal. 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 Currently he agrees just in the hospital. no chest pain or dyspnea. No specific GI or urinary complaints. No headache dizziness weakness or numbness vitals looks stable CBC is unremarkable Sodium is improving 128 up to 133 EKG shows sinus rhythm at 84 Chest x-ray no acute process 01/19/2024 Patient is evaluated in follow-up on the medical floor. Patient continues to have symptoms of alcohol withdrawal he is having tremors at baseline and overall states that "he feels like shit". He is continued on Ativan CIWA protocol with last dose being given in at 3 AM this morning. Patient does complain of multiple episodes of loose stools and nausea. C. difficile was found to be negative he will be started on question for supportive care. He is currently pending rehab and social work is following with multiple social issues including no insurance. 01/20/2024 Patient is eval today in follow-up on the medical floor. Patient continues to have bouts of diarrhea however overall improving and discontinuing question and Imodium. Patient is not having any tremors today he is more awake alert and oriented. He is still requiring a walker and assistance with ambulation and was recommended to discharge to subacute rehab. Potentially could be reevaluated by physical therapy when they are available on Monday and discharged home instead as patient states that he has things that he needs to take care of. Blood work today reveals a sodium level of 135, potassium 3.7, BUN of 13, creatinine of 0.71. Hemodynamically he is stable. 01/21/2024 Patient is evaluated in follow-up in the medical floor does continue to report diarrhea C. difficile was found to be negative and we will continue with Questran as well as Imodium. Patient is awake alert oriented is not actively withdrawing at this time. He is just pending physical therapy re-evaluation and discharge planning. Review of Systems Constitutional: Denied any fatigue denied any fever. Cardio vascular: denied any chest pain, palpitations Gastrointestinal: denied any nausea, vomiting, diarrhea Pulmonary: Denied any shortness of breath cough Neurologic: Reports weakness, tremors All inpatient medications were reviewed and appropriate changes in these medications as dictated in the interval history and assessment and plan. PHYSICAL EXAMINATION: GENERAL: The patient is alert and oriented x3, not in any acute distress. Well developed, well nourished. HEENT: Pupils are round and equally reacting to light. EOMI. No scleral icterus. No conjunctival pallor. Normocephalic, atraumatic. No pharyngeal erythema. No thyromegaly. CARDIOVASCULAR: S1 and S2 present. No murmurs, rubs, or gallops. PULMONARY: Chest is clear to auscultation, no wheezing or crackles. ABDOMEN: Soft, nontender, nondistended, normoactive bowel sounds. No palpable organomegaly. MUSCULOSKELETAL: No joint swelling or deformity. EXTREMITIES: No cyanosis, clubbing, or pedal edema. NEUROLOGICAL: Gross neurological examination did not reveal any focal deficits. Diffuse weakness and tremors with arms extended. SKIN: No rashes. Assessment and Plan Assessment Alcohol use disorder and alcohol withdrawal Depression without suicidal or homicidal ideation Insomnia Hyponatremia hypovolemic due to diarrhea Diarrhea from alcohol withdrawal hyperlipidemia GI prophylaxis Protonix DVT prophlyaxis Full Code Plan Continue on ativan CIWA protocol Continue with normal saline running at 75 mls/hr Add questran scheduled as well as imodium for the diarrhea Repeat BMP in the AM monitor electrolytes and renal function Social work following for Medicaid josse and rehab placement. To reevaluate patient on Monday with physical therapy and possible discharge home if he is doing well enough. The impression and plan of care has been dictated by Angie Diaz Nurse Practitioner as directed. Dr. Tara MD I have performed a history and physical examination and medical decision making of this patient, discussed the same with the dictator, and agree with the dictators assessment and plan as written, documented as a scribe. Based on total visit time, I have performed more than 50% of this visit. Objective - Vital Signs Vital signs: Vital Signs Temp 98.1 F 01/21/24 08:00 Pulse 69 01/21/24 08:32 Resp 16 01/21/24 08:00 BP 169/63 01/21/24 08:00 Pulse Ox 100 01/21/24 08:00 FiO2 Intake & Output 01/20/24 01/21/24 01/21/24 18:59 06:59 18:59 Other: Voiding Method Toilet Toilet Toilet # Voids 1 1 # Bowel Movements 0 4 - Labs CBC & Chem 7: 01/18/24 07:17 01/20/24 06:59 Assessment and Plan Time with Patient: Less than 30
[2024-01-22] MEDS ORDERED: IPRATROPIUM-ALBUTEROL 3 ML NEB ONE (00:01)
[2024-01-22] MEDS ORDERED: SYMBICORT 160-4.5 MCG INHALER INHALATION ONE (00:01)
[2024-01-22 07:33] VITALS: BP 139/51; PULSE 80; RESP 19; TEMP 98.2
[2024-01-22] MEDS ORDERED: PANTOPRAZOLE 40 MG TABLET PO ONE (09:45)
[2024-01-22] MEDS ORDERED: NICOTINE 14MG/24HR PATCH TRANSDERM ONE (09:45)
[2024-01-22] MEDS ORDERED: THIAMINE 100 MG TAB ONE (09:45)
[2024-01-22] MEDS ORDERED: FAMOTIDINE 20 MG TAB ONE ×2 (09:45→20:00)
[2024-01-22] MEDS ORDERED: HEPARIN SODIUM,PORCINE 5,000 UNIT/ML 1 ML VIAL ONE ×2 (09:46→20:09)
[2024-01-22] MEDS ORDERED: LOPERAMIDE 2 MG CAP ONE ×2 (09:46→17:56)
[2024-01-22] MEDS ORDERED: FOLIC ACID 1 MG TAB ONE (14:56)
[2024-01-22] MEDS ORDERED: MULTIVITAMINS, THERA 1 EACH TAB ONE (14:56)
[2024-01-22] MEDS ORDERED: traZODone HCL 100 MG TAB ONE (20:10)
[2024-01-23] MEDS ORDERED: LOPERAMIDE 2 MG CAP ONE ×2 (00:07→08:34)
[2024-01-23] MEDS ORDERED: PANTOPRAZOLE 40 MG TABLET PO ONE (06:13)
[2024-01-23] MEDS ORDERED: IPRATROPIUM-ALBUTEROL 3 ML NEB ONE (07:50)
[2024-01-23] MEDS ORDERED: THIAMINE 100 MG TAB ONE (08:33)
[2024-01-23] MEDS ORDERED: NICOTINE 14MG/24HR PATCH TRANSDERM ONE (08:33)
[2024-01-23] MEDS ORDERED: FAMOTIDINE 20 MG TAB ONE (08:33)
[2024-01-23] MEDS ORDERED: HEPARIN SODIUM,PORCINE 5,000 UNIT/ML 1 ML VIAL ONE (08:33)
[2024-01-23] MEDS ORDERED: HYDROcodone/APAP 5-325MG 1 EACH TAB ONE (08:34)
--- NOTE | 2024-03-01 09:03 | XR ---
EXAMINATION TYPE: XR abdomen 2V DATE OF EXAM: 03/01/2024 HISTORY: Pain. Technique: 2 views of the abdomen are submitted. Comparison: 01/22/2024 Findings: There is no convincing evidence of pneumoperitoneum. The Bowel gas pattern is nonspecific and nonobstructive. No sizable air-fluid levels are seen. No mass effects are noted. Calcified gallstones noted. IMPRESSION: 1. Nonspecific nonobstructive bowel gas pattern
== END 2024-01-23 14:30 | disposition home or self-care (01) | DRG 775 ==
LOC: EC 19:36 → 4SSUR 01-16 01:49 → 1SOBS 01-16 14:42 → 6NMEDSUR 01-20 16:51
PROVIDERS: ADMIT Internal Medicine; ATTEND Internal Medicine
DX: F10.129 Alcohol abuse with intoxication, unspecified (principal); J44.1 Chronic obstructive pulmonary disease with (acute) exacerbation; E87.1 Hypo-osmolality and hyponatremia; F10.139 Alcohol abuse with withdrawal, unspecified; F31.9 Bipolar disorder, unspecified; F41.9 Anxiety disorder, unspecified; I10 Essential (primary) hypertension; Y90.8 Blood alcohol level of 240 mg/100 ml or more; E78.5 Hyperlipidemia, unspecified; E87.6 Hypokalemia; E86.1 Hypovolemia; F17.200 Nicotine dependence, unspecified, uncomplicated; G47.00 Insomnia, unspecified; Z59.86 Financial insecurity
CPT/HCPCS: 36415; 71045; 74019; 80048; 80053; 80320; 83605; 83735; 84484; 85025; 85610; 85730; 87324; 87636; 93005; 94640; 96361; 96374; 96376; 99285